=== PATIENT | male | born 1950 | race Caucasian/White ===

== ENCOUNTER 2017-11-22 17:45 | Inpatient (IN) | payer MEDICARE, OTHER ==
[2017-11-23] MEDS: SOD CHLORIDE 0.9% 1,000 ML IV (00:04)
[2017-11-23 00:31] LABS: ADD MAN DIFF? NO
[2017-11-23 00:54] LABS: BASOPHILS % 0.3 % (0.0-2.0); EOSINOPHILS # 0.2 10^3/ul (0.0-0.5); EOSINOPHILS % 2.3 % (0.0-7.0); HEMATOCRIT 37.5 % (42.0-52.0); HEMOGLOBIN 12.7 g/dl (14.0-18.0); LYMPHOCYTES # 2.1 10^3/ul (0.8-2.9); MEAN CORPUSCULAR HEMOGLOBIN 31.1 pg (29.0-33.0); MEAN CORPUSCULAR HGB CONC 33.9 g/dl (32.0-37.0); MEAN CORPUSCULAR VOLUME 91.9 fl (82.0-101.0); MEAN PLATELET VOLUME 10.5 fl (7.4-10.4); MONOCYTE # 0.7 10^3/ul (0.3-0.9); MONOCYTES % 9.7 % (0.0-11.0); NEUTROPHIL # 4.5 10^3/ul (1.6-7.5); NEUTROPHILS % 59.6 % (39.0-77.0); PLATELET COUNT 180 10^3/UL (140-415); RED BLOOD COUNT 4.08 10^6/ul (4.70-6.10); RED CELL DISTRIBUTION WIDTH 13.6 % (11.5-14.5)
[2017-11-23 00:54] LABS: WHITE BLOOD COUNT 7.5 10^3/ul (4.8-10.8)
[2017-11-23 01:16] LABS: ANION GAP 15 (8-16); BLOOD UREA NITROGEN 13 mg/dl (7-20); CALCIUM 8.6 mg/dl (8.4-10.2); CARBON DIOXIDE 28 mmol/L (21-31); CHLORIDE 100 mmol/L (97-110); CREATININE 0.76 mg/dl (0.61-1.24); GLUCOSE 102 mg/dl (70-220); LACTIC ACID 1.1 mmol/L (0.5-2.0); POTASSIUM 3.7 mmol/L (3.5-5.1); SODIUM 139 mmol/L (135-144)
[2017-11-23 01:19] LABS: ADD UMIC NO; UR ASCORBIC ACID NEGATIVE (NEGATIVE); UR BILIRUBIN (Dip) NEGATIVE (NEGATIVE); UR BLOOD (Dip) NEGATIVE (NEGATIVE); UR CLARITY CLEAR (CLEAR); UR COLOR STRAW (YELLOW); UR GLUCOSE (Dip) NEGATIVE (NEGATIVE); UR KETONES (Dip) NEGATIVE (NEGATIVE); UR LEUKOCYTE ESTERASE (Dip) NEGATIVE Leu/ul (NEGATIVE); UR NITRITE (Dip) NEGATIVE (NEGATIVE); UR SPECIFIC GRAVITY (Dip) 1.006 (1.003-1.030); UR TOTAL PROTEIN (Dip) NEGATIVE (NEGATIVE); UR UROBILINOGEN (Dip) NEGATIVE (NEGATIVE)
[2017-11-23 01:42] LABS: INR 0.86; PROTIME 11.8 Sec (11.9-14.9); PT RATIO 0.9; TROPONIN-I < 0.012 ng/ml (0.00-0.12)
[2017-11-23 01:43] LABS: PARTIAL THROMBOPLASTIN TIME 29.9 Sec (25.0-35.0)
[2017-11-23 01:47] LABS: THYROID STIMULATING HORMONE 0.954 MIU/L (0.465-4.680)
[2017-11-23 02:26] LABS: AMPHETAMINE/METHAMPHETAMINE Negative (NEGATIVE); BARBITURATES Negative (NEGATIVE); BENZODIAZEPINES Negative (NEGATIVE)
[2017-11-23 02:26] LABS: ETHANOL < 10.0 mg/dl
[2017-11-23 02:27] LABS: CANNABINOIDS Positive (NEGATIVE); COCAINE Negative (NEGATIVE); OPIATES Negative (NEGATIVE)
[2017-11-23 02:32] LABS: AMMONIA 21 umol/l (9-30)
[2017-11-23] MEDS: morphine 10 MG INJ IV (02:54)
[2017-11-23] MEDS ORDERED: ACETAMINOPHEN 325 MG TAB PO ×2 (03:30→13:00)
[2017-11-23] MEDS: CEFAZOLIN 1 GM/50 ML (PMX) 50 ML IVPB (08:26)
[2017-11-23] MEDS: DIPHTH/TET/ACEL PERTUSS (ADULT) 0.5 ML VIAL IM* (08:27)
[2017-11-23] MEDS ORDERED: NACL 0.9% 3 ML SYG IV (13:00)
[2017-11-23 13:54] LABS: CREATINE KINASE 95 IU/L (23-200)
[2017-11-23 14:07] LABS: CK INDEX 1.1
[2017-11-23 14:10] LABS: CK-MB 1.04 ng/ml (0.0-2.4); TROPONIN-I < 0.012 ng/ml (0.00-0.12)
[2017-11-23] MEDS: morphine 2 MG INJ IV ×2 (15:32→21:59)
[2017-11-23] MEDS: HYDROmorphONE 1 MG/ML SYG IV (20:17)
[2017-11-23 20:18] LABS: CREATINE KINASE 90 IU/L (23-200)
[2017-11-23] MEDS: FAMOTIDINE 20 MG INJ IV (20:18)
[2017-11-23 20:31] LABS: CK-MB 0.93 ng/ml (0.0-2.4); TROPONIN-I < 0.012 ng/ml (0.00-0.12)
[2017-11-23] MEDS: ONDANSETRON 4 MG INJ IV (21:58)
[2017-11-23] MEDS: KETOROLAC 15 MG INJ IV (22:40)
[2017-11-24 07:27] LABS: ADD MAN DIFF? NO
[2017-11-24 07:31] LABS: WHITE BLOOD COUNT 6.2 10^3/ul (4.8-10.8)
[2017-11-24 07:31] LABS: BASOPHILS % 0.3 % (0.0-2.0); EOSINOPHILS # 0.2 10^3/ul (0.0-0.5); EOSINOPHILS % 2.9 % (0.0-7.0); HEMATOCRIT 39.1 % (42.0-52.0); LYMPHOCYTES # 1.9 10^3/ul (0.8-2.9); LYMPHOCYTES % 30.4 % (15.0-51.0); MEAN CORPUSCULAR HGB CONC 33.2 g/dl (32.0-37.0); MEAN CORPUSCULAR VOLUME 93.1 fl (82.0-101.0); MEAN PLATELET VOLUME 9.8 fl (7.4-10.4); MONOCYTE # 0.7 10^3/ul (0.3-0.9); MONOCYTES % 11.2 % (0.0-11.0); NEUTROPHIL # 3.4 10^3/ul (1.6-7.5); NEUTROPHILS % 54.9 % (39.0-77.0); PLATELET COUNT 185 10^3/UL (140-415); RED CELL DISTRIBUTION WIDTH 13.2 % (11.5-14.5)
[2017-11-24 08:00] LABS: ALANINE AMINOTRANSFERASE 37 IU/L (13-69); ALBUMIN 3.7 g/dl (3.3-4.9); ALBUMIN/GLOBULIN RATIO 1.27; ALKALINE PHOSPHATASE 75 IU/L (42-121); ANION GAP 12 (8-16); ASPARTATE AMINO TRANSFERASE 30 IU/L (15-46); BILIRUBIN,INDIRECT 0.5 mg/dl (0-1.1); BILIRUBIN,TOTAL 0.5 mg/dl (0.2-1.3); BLOOD UREA NITROGEN 12 mg/dl (7-20); CALCIUM 7.9 mg/dl (8.4-10.2); CARBON DIOXIDE 31 mmol/L (21-31); CHLORIDE 102 mmol/L (97-110); GLUCOSE 94 mg/dl (70-220); SODIUM 141 mmol/L (135-144); TOTAL PROTEIN 6.6 g/dl (6.1-8.1)
[2017-11-24] MEDS: ASPIRIN 81 MG TAB PO (08:23)
[2017-11-24] MEDS: FAMOTIDINE 20 MG INJ IV ×2 (08:23→20:24)
[2017-11-24] MEDS: ENOXAPARIN 30 MG/0.3 ML SYG SC (08:27)
[2017-11-24] MEDS: ONDANSETRON 4 MG INJ IV (13:15)
[2017-11-24 14:09] LABS: B-TYPE NATRIURETIC PEPTIDE 362 PG/ML (0-125)
[2017-11-24] MEDS ORDERED: GLUCOSE GEL 15 GRAM TUBE BUCCAL (16:00)
[2017-11-24] MEDS ORDERED: GLUCAGON 1 MG INJ IM (16:00)
[2017-11-24] MEDS ORDERED: DEXTROSE 50% 50 ML SYRINGE IV ×2 (16:00)
[2017-11-24] MEDS ORDERED: GLUCOSE GEL 15 GRAM TUBE PO ×2 (16:00)
[2017-11-24] MEDS ORDERED: ACCU-CHEK XX (17:25)
[2017-11-24] MEDS: INSULIN ASPART [NOVOLOG] 3 ML PEN SC ×2 (17:55→20:36)
[2017-11-24] MEDS: morphine 2 MG INJ IV (22:30)
[2017-11-25] MEDS: INSULIN ASPART [NOVOLOG] 3 ML PEN SC ×4 (07:55→20:05)
[2017-11-25] MEDS: ASPIRIN 81 MG TAB PO (08:16)
[2017-11-25] MEDS: FAMOTIDINE 20 MG INJ IV ×2 (08:16→20:05)
[2017-11-25] MEDS: VALSARTAN 80 MG TAB PO (08:17)
[2017-11-25] MEDS: ENOXAPARIN 30 MG/0.3 ML SYG SC (08:26)
[2017-11-25 08:54] LABS: ADD MAN DIFF? NO
[2017-11-25 09:09] LABS: BASOPHILS % 0.3 % (0.0-2.0); EOSINOPHILS # 0.2 10^3/ul (0.0-0.5); EOSINOPHILS % 2.7 % (0.0-7.0); LYMPHOCYTES # 1.7 10^3/ul (0.8-2.9); LYMPHOCYTES % 22.6 % (15.0-51.0); MEAN CORPUSCULAR HEMOGLOBIN 31.9 pg (29.0-33.0); MEAN CORPUSCULAR HGB CONC 34.2 g/dl (32.0-37.0); MEAN CORPUSCULAR VOLUME 93.1 fl (82.0-101.0); MEAN PLATELET VOLUME 9.9 fl (7.4-10.4); MONOCYTE # 0.7 10^3/ul (0.3-0.9); MONOCYTES % 9.9 % (0.0-11.0); NEUTROPHIL # 4.7 10^3/ul (1.6-7.5); NEUTROPHILS % 64.2 % (39.0-77.0); PLATELET COUNT 185 10^3/UL (140-415); RED BLOOD COUNT 4.08 10^6/ul (4.70-6.10); RED CELL DISTRIBUTION WIDTH 13.4 % (11.5-14.5)
[2017-11-25 09:09] LABS: WHITE BLOOD COUNT 7.4 10^3/ul (4.8-10.8)
[2017-11-25 09:15] LABS: ANION GAP 11 (8-16); BLOOD UREA NITROGEN 13 mg/dl (7-20); CALCIUM 8.7 mg/dl (8.4-10.2); CARBON DIOXIDE 31 mmol/L (21-31); CHLORIDE 102 mmol/L (97-110); CREATININE 0.83 mg/dl (0.61-1.24); GLUCOSE 95 mg/dl (70-220); MAGNESIUM 2.2 mg/dl (1.7-2.5); POTASSIUM 4.1 mmol/L (3.5-5.1); SODIUM 140 mmol/L (135-144)
[2017-11-25 09:22] LABS: HEMOGLOBIN A1C 6.1 % (0-5.9)
[2017-11-25 09:28] LABS: TROPONIN-I < 0.012 ng/ml (0.00-0.12)
[2017-11-25 09:34] LABS: ALANINE AMINOTRANSFERASE 35 IU/L (13-69); ALBUMIN 3.7 g/dl (3.3-4.9); ALBUMIN/GLOBULIN RATIO 1.32; ALKALINE PHOSPHATASE 74 IU/L (42-121); ANION GAP 11 (8-16); ASPARTATE AMINO TRANSFERASE 28 IU/L (15-46); BILIRUBIN,INDIRECT 0.4 mg/dl (0-1.1); BILIRUBIN,TOTAL 0.4 mg/dl (0.2-1.3); BLOOD UREA NITROGEN 12 mg/dl (7-20); CALCIUM 8.9 mg/dl (8.4-10.2); CARBON DIOXIDE 33 mmol/L (21-31); CHLORIDE 100 mmol/L (97-110); CREATININE 0.89 mg/dl (0.61-1.24); GLUCOSE 92 mg/dl (70-220); POTASSIUM 4.5 mmol/L (3.5-5.1); SODIUM 139 mmol/L (135-144); TOTAL PROTEIN 6.5 g/dl (6.1-8.1)
[2017-11-25] MEDS: morphine 2 MG INJ IV ×2 (11:04→21:42)
[2017-11-25] MEDS: REGADENOSON 0.4 MG/5 ML SYG (14:16)
[2017-11-25] MEDS ORDERED: NITROGLYCERIN (SL) 0.4 MG TAB SL (14:40)
[2017-11-26] MEDS: ONDANSETRON 4 MG INJ IV ×2 (00:25→17:54)
[2017-11-26] MEDS: INSULIN ASPART [NOVOLOG] 3 ML PEN SC ×4 (07:55→21:00)
[2017-11-26] MEDS: FAMOTIDINE 20 MG INJ IV ×2 (09:08→20:46)
[2017-11-26] MEDS: VALSARTAN 80 MG TAB PO (09:09)
[2017-11-26] MEDS: ASPIRIN 81 MG TAB PO (09:09)
[2017-11-26] MEDS: ENOXAPARIN 30 MG/0.3 ML SYG SC (09:22)
[2017-11-27] MEDS: INSULIN ASPART [NOVOLOG] 3 ML PEN SC ×3 (07:55→17:55)
[2017-11-27] MEDS: VALSARTAN 80 MG TAB PO (08:24)
[2017-11-27] MEDS: FAMOTIDINE 20 MG INJ IV (08:24)
[2017-11-27] MEDS: ASPIRIN 81 MG TAB PO (08:24)
[2017-11-27 08:45] LABS: ADD MAN DIFF? NO
[2017-11-27 08:49] LABS: WHITE BLOOD COUNT 7.2 10^3/ul (4.8-10.8)
[2017-11-27 08:49] LABS: BASOPHILS % 0.6 % (0.0-2.0); EOSINOPHILS # 0.3 10^3/ul (0.0-0.5); EOSINOPHILS % 4.3 % (0.0-7.0); HEMATOCRIT 40.2 % (42.0-52.0); HEMOGLOBIN 13.7 g/dl (14.0-18.0); LYMPHOCYTES # 1.9 10^3/ul (0.8-2.9); MEAN CORPUSCULAR HEMOGLOBIN 31.3 pg (29.0-33.0); MEAN CORPUSCULAR HGB CONC 34.1 g/dl (32.0-37.0); MEAN CORPUSCULAR VOLUME 91.8 fl (82.0-101.0); MONOCYTE # 0.7 10^3/ul (0.3-0.9); MONOCYTES % 10.1 % (0.0-11.0); NEUTROPHIL # 4.3 10^3/ul (1.6-7.5); NEUTROPHILS % 58.9 % (39.0-77.0); PLATELET COUNT 205 10^3/UL (140-415); RED BLOOD COUNT 4.38 10^6/ul (4.70-6.10); RED CELL DISTRIBUTION WIDTH 13.3 % (11.5-14.5)
[2017-11-27] MEDS: ENOXAPARIN 30 MG/0.3 ML SYG SC (08:56)
[2017-11-27 09:14] LABS: ANION GAP 15 (8-16); BLOOD UREA NITROGEN 12 mg/dl (7-20); CALCIUM 9.6 mg/dl (8.4-10.2); CARBON DIOXIDE 33 mmol/L (21-31); CHLORIDE 101 mmol/L (97-110); CREATININE 0.91 mg/dl (0.61-1.24); GLUCOSE 104 mg/dl (70-220); POTASSIUM 5.4 mmol/L (3.5-5.1); SODIUM 144 mmol/L (135-144)
[2017-11-27] MEDS: NA POLYST SULFON 15 GM/60 ML BTL PO (11:49)
== END 2017-11-27 19:18 | DRG 312 ==
LOC: E/R 17:45 → TEL 11-23 03:13
DX: R55 Syncope and collapse (principal); I10 Essential (primary) hypertension; E78.5 Hyperlipidemia, unspecified; D64.9 Anemia, unspecified; E11.9 Type 2 diabetes mellitus without complications; S02.2XXA Fracture of nasal bones, initial encounter for closed fracture; S01.81XA Laceration without foreign body of other part of head, initial encounter; Z95.810 Presence of automatic (implantable) cardiac defibrillator; I25.10 Atherosclerotic heart disease of native coronary artery without angina pectoris; Z95.5 Presence of coronary angioplasty implant and graft; I25.5 Ischemic cardiomyopathy; Z72.0 Tobacco use; W18.30XA Fall on same level, unspecified, initial encounter; Y92.480 Sidewalk as the place of occurrence of the external cause; I25.2 Old myocardial infarction
CPT/HCPCS: 36415; 70450; 70486; 71045; 72125; 72170; 78452; 80048; 80053; 80306; 80307; 81003; 82140; 82550; 82553; 82962; 83036; 83605; 83735; 83880; 84443; 84484; 85025; 85610; 85730; 90471; 90715; 93005; 93017; 93306; 93880; 96374; 96375; 96376; 97116; 97163; 97530; 99285-25

== ENCOUNTER 2017-11-27 19:25 | Inpatient (IN) | payer MEDICARE, OTHER ==
[2017-11-27] MEDS ORDERED: GLUCOSE GEL 15 GRAM TUBE PO ×2 (20:35)
[2017-11-27] MEDS ORDERED: FAMOTIDINE 20 MG INJ IV (20:35)
[2017-11-27] MEDS ORDERED: DEXTROSE 50% 50 ML SYRINGE IV ×2 (20:35)
[2017-11-27] MEDS ORDERED: GLUCAGON 1 MG INJ IM (20:35)
[2017-11-27] MEDS ORDERED: GLUCOSE GEL 15 GRAM TUBE BUCCAL (20:35)
[2017-11-27] MEDS ORDERED: NACL 0.9% 3 ML SYG IV (20:35)
[2017-11-27] MEDS ORDERED: morphine 2 MG INJ IV (20:35)
[2017-11-27] MEDS ORDERED: NITROGLYCERIN (SL) 0.4 MG TAB SL (20:35)
[2017-11-27] MEDS ORDERED: ONDANSETRON 4 MG INJ IV (20:35)
[2017-11-27] MEDS: INSULIN ASPART [NOVOLOG] 3 ML PEN SC (21:00)
[2017-11-27] MEDS: FAMOTIDINE 20 MG TAB PO (21:57)
[2017-11-27] MEDS: ATORVASTATIN 40 MG TAB PO (21:57)
[2017-11-27 23:24] LABS: ADD UMIC NO; UR ASCORBIC ACID 20 mg/dL (NEGATIVE); UR BILIRUBIN (Dip) NEGATIVE (NEGATIVE); UR BLOOD (Dip) NEGATIVE (NEGATIVE); UR CLARITY CLEAR (CLEAR); UR COLOR YELLOW (YELLOW); UR GLUCOSE (Dip) NEGATIVE (NEGATIVE); UR KETONES (Dip) NEGATIVE (NEGATIVE); UR LEUKOCYTE ESTERASE (Dip) NEGATIVE Leu/ul (NEGATIVE); UR NITRITE (Dip) NEGATIVE (NEGATIVE); UR SPECIFIC GRAVITY (Dip) 1.008 (1.003-1.030); UR TOTAL PROTEIN (Dip) NEGATIVE (NEGATIVE); UR UROBILINOGEN (Dip) NEGATIVE (NEGATIVE)
[2017-11-27] MEDS: ZOLPIDEM 5 MG TAB PO (23:40)
[2017-11-27] MEDS: MAGNESIUM HYDROXIDE 30ML CUP PO (23:42)
[2017-11-28] MEDS: ACETAMINOPHEN 325 MG TAB PO (05:10)
[2017-11-28] MEDS: INSULIN ASPART [NOVOLOG] 3 ML PEN SC ×4 (07:35→20:53)
[2017-11-28 07:40] LABS: ADD MAN DIFF? NO
[2017-11-28 07:51] LABS: BASOPHILS % 0.6 % (0.0-2.0); EOSINOPHILS # 0.3 10^3/ul (0.0-0.5); EOSINOPHILS % 4.7 % (0.0-7.0); HEMATOCRIT 39.2 % (42.0-52.0); HEMOGLOBIN 13.3 g/dl (14.0-18.0); LYMPHOCYTES # 1.8 10^3/ul (0.8-2.9); LYMPHOCYTES % 28.6 % (15.0-51.0); MEAN CORPUSCULAR HEMOGLOBIN 30.9 pg (29.0-33.0); MEAN CORPUSCULAR HGB CONC 33.9 g/dl (32.0-37.0); MEAN CORPUSCULAR VOLUME 91.2 fl (82.0-101.0); MEAN PLATELET VOLUME 9.8 fl (7.4-10.4); MONOCYTE # 0.7 10^3/ul (0.3-0.9); MONOCYTES % 11.4 % (0.0-11.0); NEUTROPHIL # 3.4 10^3/ul (1.6-7.5); NEUTROPHILS % 54.4 % (39.0-77.0); PLATELET COUNT 204 10^3/UL (140-415); RED CELL DISTRIBUTION WIDTH 13.3 % (11.5-14.5)
[2017-11-28 07:51] LABS: WHITE BLOOD COUNT 6.2 10^3/ul (4.8-10.8)
[2017-11-28 08:10] LABS: ALANINE AMINOTRANSFERASE 38 IU/L (13-69); ALBUMIN 4.2 g/dl (3.3-4.9); ALBUMIN/GLOBULIN RATIO 1.27; ALKALINE PHOSPHATASE 77 IU/L (42-121); ANION GAP 12 (8-16); ASPARTATE AMINO TRANSFERASE 38 IU/L (15-46); BILIRUBIN,INDIRECT 0.5 mg/dl (0-1.1); BILIRUBIN,TOTAL 0.5 mg/dl (0.2-1.3); BLOOD UREA NITROGEN 11 mg/dl (7-20); CALCIUM 9.1 mg/dl (8.4-10.2); CARBON DIOXIDE 32 mmol/L (21-31); CHLORIDE 100 mmol/L (97-110); GLUCOSE 105 mg/dl (70-220); POTASSIUM 3.9 mmol/L (3.5-5.1); SODIUM 140 mmol/L (135-144); TOTAL PROTEIN 7.5 g/dl (6.1-8.1)
[2017-11-28] MEDS: metFORMIN 500 MG TAB PO ×2 (08:31→18:20)
[2017-11-28] MEDS: ONDANSETRON 4 MG TAB PO (08:54)
[2017-11-28] MEDS: FAMOTIDINE 20 MG TAB PO ×2 (08:54→20:52)
[2017-11-28] MEDS: ASPIRIN 81 MG TAB PO (09:00)
[2017-11-28] MEDS: ENOXAPARIN 30 MG/0.3 ML SYG SC (09:00)
[2017-11-28] MEDS: ONDANSETRON 4 MG INJ IM (10:17)
[2017-11-28] MEDS: DOCUSATE SODIUM 100 MG CAP PO ×2 (11:39→20:52)
[2017-11-28] MEDS: SENNA TAB PO (20:52)
[2017-11-28] MEDS: ATORVASTATIN 40 MG TAB PO (20:52)
[2017-11-28] MEDS: ZOLPIDEM 5 MG TAB PO (22:05)
[2017-11-29] MEDS: ONDANSETRON 4 MG TAB PO ×2 (04:03→08:59)
[2017-11-29] MEDS: INSULIN ASPART [NOVOLOG] 3 ML PEN SC ×4 (07:35→20:33)
[2017-11-29] MEDS: DOCUSATE SODIUM 100 MG CAP PO ×2 (09:00→20:33)
[2017-11-29] MEDS: metFORMIN 500 MG TAB PO ×2 (09:00→17:26)
[2017-11-29] MEDS: FAMOTIDINE 20 MG TAB PO ×2 (09:01→20:33)
[2017-11-29] MEDS: ASPIRIN 81 MG TAB PO (09:01)
[2017-11-29] MEDS: FUROSEMIDE 20 MG TAB PO (09:02)
[2017-11-29] MEDS: ENOXAPARIN 30 MG/0.3 ML SYG SC (09:03)
[2017-11-29] MEDS: BENAZEPRIL 10 MG TAB PO (16:00)
[2017-11-29] MEDS: SENNA TAB PO (20:32)
[2017-11-29] MEDS: ATORVASTATIN 40 MG TAB PO (20:32)
[2017-11-29] MEDS: ZOLPIDEM 5 MG TAB PO (22:12)
[2017-11-30] MEDS: ONDANSETRON 4 MG TAB PO (05:55)
[2017-11-30] MEDS: INSULIN ASPART [NOVOLOG] 3 ML PEN SC ×4 (07:35→20:37)
[2017-11-30] MEDS: metFORMIN 500 MG TAB PO ×2 (07:35→18:20)
[2017-11-30] MEDS: DOCUSATE SODIUM 100 MG CAP PO ×2 (09:00→21:00)
[2017-11-30] MEDS ORDERED: ONDANSETRON 4 MG INJ IM (10:43)
[2017-11-30 10:44] LABS: AMYLASE 60 U/L (11-123); ANION GAP 16 (8-16); BLOOD UREA NITROGEN 15 mg/dl (7-20); CALCIUM 10.1 mg/dl (8.4-10.2); CARBON DIOXIDE 27 mmol/L (21-31); CHLORIDE 100 mmol/L (97-110); CREATININE 0.84 mg/dl (0.61-1.24); GLUCOSE 119 mg/dl (70-220); LIPASE 106 U/L (23-300); MAGNESIUM 1.9 mg/dl (1.7-2.5); POTASSIUM 3.6 mmol/L (3.5-5.1); SODIUM 139 mmol/L (135-144)
[2017-11-30] MEDS: BARIUM SULF 2% 450 ML BTL (BERRY SMOOTHIE) PO (11:19)
[2017-11-30] MEDS: ASPIRIN 81 MG TAB PO (11:27)
[2017-11-30] MEDS: FAMOTIDINE 20 MG TAB PO ×2 (11:28→20:34)
[2017-11-30] MEDS: BENAZEPRIL 10 MG TAB PO (11:29)
[2017-11-30] MEDS: ENOXAPARIN 30 MG/0.3 ML SYG SC (11:30)
[2017-11-30] MEDS: ONDANSETRON 4 MG INJ IV (16:47)
[2017-11-30] MEDS: ATORVASTATIN 40 MG TAB PO (20:34)
[2017-11-30] MEDS: SENNA TAB PO (21:00)
[2017-11-30] MEDS: ZOLPIDEM 5 MG TAB PO (22:50)
[2017-12-01] MEDS: ONDANSETRON 4 MG INJ IV (05:51)
[2017-12-01] MEDS: INSULIN ASPART [NOVOLOG] 3 ML PEN SC ×4 (07:35→21:00)
[2017-12-01] MEDS: metFORMIN 500 MG TAB PO ×2 (08:22→17:57)
[2017-12-01] MEDS: LORAZEPAM 0.5 MG TAB PO ×2 (09:32→21:40)
[2017-12-01] MEDS: FAMOTIDINE 20 MG TAB PO ×2 (09:32→21:43)
[2017-12-01] MEDS: DOCUSATE SODIUM 100 MG CAP PO ×2 (09:33→21:39)
[2017-12-01] MEDS: FUROSEMIDE 20 MG TAB PO (09:33)
[2017-12-01] MEDS: BENAZEPRIL 10 MG TAB PO (09:33)
[2017-12-01] MEDS: ASPIRIN 81 MG TAB PO (09:33)
[2017-12-01] MEDS: ENOXAPARIN 30 MG/0.3 ML SYG SC (09:34)
[2017-12-01] MEDS: ESCITALOPRAM 10 MG TAB PO (12:53)
[2017-12-01 19:53] LABS: AMYLASE 80 U/L (11-123)
[2017-12-01 19:53] LABS: LIPASE 432 U/L (23-300)
[2017-12-01] MEDS: BUSPIRONE 5 MG TAB PO (21:39)
[2017-12-01] MEDS: SENNA TAB PO (21:39)
[2017-12-01] MEDS: ATORVASTATIN 40 MG TAB PO (21:39)
[2017-12-02] MEDS: ZOLPIDEM 5 MG TAB PO (01:03)
[2017-12-02] MEDS: INSULIN ASPART [NOVOLOG] 3 ML PEN SC ×4 (07:35→21:00)
[2017-12-02] MEDS: metFORMIN 500 MG TAB PO ×2 (07:35→17:55)
[2017-12-02] MEDS: ESCITALOPRAM 10 MG TAB PO (09:00)
[2017-12-02] MEDS: FAMOTIDINE 20 MG TAB PO ×2 (09:00→21:31)
[2017-12-02] MEDS: BUSPIRONE 5 MG TAB PO ×2 (09:00→21:31)
[2017-12-02] MEDS: DOCUSATE SODIUM 100 MG CAP PO ×2 (09:00→21:32)
[2017-12-02] MEDS: BENAZEPRIL 10 MG TAB PO (09:00)
[2017-12-02] MEDS: ASPIRIN 81 MG TAB PO (09:00)
[2017-12-02] MEDS: ENOXAPARIN 30 MG/0.3 ML SYG SC (10:18)
[2017-12-02] MEDS: PROPOFOL 40 ML (11:58)
[2017-12-02] MEDS: ONDANSETRON 4 MG TAB PO (14:47)
[2017-12-02] MEDS: LORAZEPAM 0.5 MG TAB PO (14:47)
[2017-12-02] MEDS: SENNA TAB PO (21:00)
[2017-12-02] MEDS: ATORVASTATIN 40 MG TAB PO (21:32)
[2017-12-03] MEDS: INSULIN ASPART [NOVOLOG] 3 ML PEN SC ×4 (07:35→21:00)
[2017-12-03] MEDS: metFORMIN 500 MG TAB PO ×2 (08:21→18:13)
[2017-12-03] MEDS: DOCUSATE SODIUM 100 MG CAP PO ×3 (09:00→21:00)
[2017-12-03] MEDS: FAMOTIDINE 20 MG TAB PO ×2 (10:27→22:05)
[2017-12-03] MEDS: BENAZEPRIL 10 MG TAB PO (10:27)
[2017-12-03] MEDS: BUSPIRONE 5 MG TAB PO ×2 (10:27→22:04)
[2017-12-03] MEDS: ESCITALOPRAM 10 MG TAB PO (10:28)
[2017-12-03] MEDS: ASPIRIN 81 MG TAB PO (10:29)
[2017-12-03] MEDS: FUROSEMIDE 20 MG TAB PO (10:29)
[2017-12-03] MEDS: ENOXAPARIN 30 MG/0.3 ML SYG SC (10:30)
[2017-12-03] MEDS: SENNA TAB PO (21:00)
[2017-12-03] MEDS: ATORVASTATIN 40 MG TAB PO (22:05)
[2017-12-03] MEDS: ZOLPIDEM 5 MG TAB PO (23:48)
[2017-12-04] MEDS: LORAZEPAM 0.5 MG TAB PO ×2 (00:19→08:39)
[2017-12-04] MEDS: INSULIN ASPART [NOVOLOG] 3 ML PEN SC ×4 (07:35→20:57)
[2017-12-04] MEDS: ACETAMINOPHEN 325 MG TAB PO (08:08)
[2017-12-04] MEDS: metFORMIN 500 MG TAB PO ×2 (08:39→17:54)
[2017-12-04] MEDS: ESCITALOPRAM 10 MG TAB PO (09:14)
[2017-12-04] MEDS: ASPIRIN 81 MG TAB PO (09:15)
[2017-12-04] MEDS: DOCUSATE SODIUM 100 MG CAP PO ×2 (09:15→20:57)
[2017-12-04] MEDS: ENOXAPARIN 30 MG/0.3 ML SYG SC (09:15)
[2017-12-04] MEDS: FAMOTIDINE 20 MG TAB PO ×2 (09:15→20:58)
[2017-12-04] MEDS: ONDANSETRON 4 MG TAB PO (09:15)
[2017-12-04] MEDS: BUSPIRONE 5 MG TAB PO ×2 (09:15→20:58)
[2017-12-04] MEDS: BENAZEPRIL 10 MG TAB PO (09:16)
[2017-12-04] MEDS: ZOLPIDEM 5 MG TAB PO (20:56)
[2017-12-04] MEDS: SENNA TAB PO (20:57)
[2017-12-04] MEDS: ATORVASTATIN 40 MG TAB PO (20:57)
[2017-12-05] MEDS: INSULIN ASPART [NOVOLOG] 3 ML PEN SC ×4 (07:35→20:49)
[2017-12-05] MEDS: ACETAMINOPHEN 325 MG TAB PO ×2 (08:12→14:33)
[2017-12-05] MEDS: ENOXAPARIN 30 MG/0.3 ML SYG SC (08:12)
[2017-12-05] MEDS: FAMOTIDINE 20 MG TAB PO ×2 (08:12→20:48)
[2017-12-05] MEDS: metFORMIN 500 MG TAB PO ×2 (08:13→17:48)
[2017-12-05] MEDS: BUSPIRONE 5 MG TAB PO ×2 (08:13→20:48)
[2017-12-05] MEDS: ASPIRIN 81 MG TAB PO (08:13)
[2017-12-05] MEDS: ESCITALOPRAM 10 MG TAB PO (08:14)
[2017-12-05] MEDS: BENAZEPRIL 10 MG TAB PO (08:15)
[2017-12-05] MEDS: FUROSEMIDE 20 MG TAB PO (08:16)
[2017-12-05] MEDS: DOCUSATE SODIUM 100 MG CAP PO ×3 (08:16→20:48)
[2017-12-05] MEDS: LIDOCAINE 5% PATCH TD (13:54)
[2017-12-05] MEDS: SENNA TAB PO (20:48)
[2017-12-05] MEDS: LORAZEPAM 0.5 MG TAB PO (20:48)
[2017-12-05] MEDS: ATORVASTATIN 40 MG TAB PO (20:48)
[2017-12-05] MEDS: ZOLPIDEM 5 MG TAB PO (21:57)
[2017-12-06] MEDS: ACETAMINOPHEN 325 MG TAB PO ×3 (02:54→19:41)
[2017-12-06] MEDS: ONDANSETRON 4 MG INJ IV (02:59)
[2017-12-06] MEDS: INSULIN ASPART [NOVOLOG] 3 ML PEN SC ×5 (07:35→20:44)
[2017-12-06] MEDS: LIDOCAINE 5% PATCH TD (08:36)
[2017-12-06] MEDS: ENOXAPARIN 30 MG/0.3 ML SYG SC (08:41)
[2017-12-06] MEDS: FAMOTIDINE 20 MG TAB PO ×2 (08:41→20:41)
[2017-12-06] MEDS: ESCITALOPRAM 10 MG TAB PO (08:43)
[2017-12-06] MEDS: BENAZEPRIL 10 MG TAB PO (08:43)
[2017-12-06] MEDS: ASPIRIN 81 MG TAB PO (08:44)
[2017-12-06] MEDS: BUSPIRONE 5 MG TAB PO ×2 (08:44→20:41)
[2017-12-06] MEDS: DOCUSATE SODIUM 100 MG CAP PO ×2 (08:44→20:40)
[2017-12-06] MEDS: metFORMIN 500 MG TAB PO ×2 (08:44→17:30)
[2017-12-06] MEDS: ATORVASTATIN 40 MG TAB PO (20:40)
[2017-12-06] MEDS: SENNA TAB PO (20:41)
[2017-12-06] MEDS: ZOLPIDEM 5 MG TAB PO (22:08)
[2017-12-07] MEDS: LORAZEPAM 0.5 MG TAB PO (01:24)
[2017-12-07] MEDS: ONDANSETRON 4 MG INJ IV (01:26)
[2017-12-07] MEDS: INSULIN ASPART [NOVOLOG] 3 ML PEN SC ×4 (07:35→20:22)
[2017-12-07] MEDS: metFORMIN 500 MG TAB PO ×2 (08:02→17:51)
[2017-12-07] MEDS: FAMOTIDINE 20 MG TAB PO ×2 (09:33→20:21)
[2017-12-07] MEDS: ENOXAPARIN 30 MG/0.3 ML SYG SC (09:33)
[2017-12-07] MEDS: FUROSEMIDE 20 MG TAB PO (09:34)
[2017-12-07] MEDS: BENAZEPRIL 10 MG TAB PO (09:36)
[2017-12-07] MEDS: ESCITALOPRAM 10 MG TAB PO (09:36)
[2017-12-07] MEDS: DOCUSATE SODIUM 100 MG CAP PO ×2 (09:37→20:22)
[2017-12-07] MEDS: ASPIRIN 81 MG TAB PO (09:37)
[2017-12-07] MEDS: BUSPIRONE 5 MG TAB PO ×2 (09:37→20:21)
[2017-12-07] MEDS: ACETAMINOPHEN 325 MG TAB PO ×2 (09:38→18:32)
[2017-12-07] MEDS: LIDOCAINE 5% PATCH TD (09:38)
[2017-12-07] MEDS: ATORVASTATIN 40 MG TAB PO (20:21)
[2017-12-07] MEDS: SENNA TAB PO (20:22)
[2017-12-07] MEDS: ZOLPIDEM 5 MG TAB PO (21:42)
[2017-12-08] MEDS: LORAZEPAM 0.5 MG TAB PO (00:35)
[2017-12-08] MEDS: ACETAMINOPHEN 325 MG TAB PO ×2 (02:26→13:17)
[2017-12-08] MEDS: INSULIN ASPART [NOVOLOG] 3 ML PEN SC ×2 (07:35→12:00)
[2017-12-08] MEDS: metFORMIN 500 MG TAB PO (08:22)
[2017-12-08] MEDS: FAMOTIDINE 20 MG TAB PO (08:24)
[2017-12-08] MEDS: ASPIRIN 81 MG TAB PO (08:24)
[2017-12-08] MEDS: ESCITALOPRAM 10 MG TAB PO (08:24)
[2017-12-08] MEDS: BUSPIRONE 5 MG TAB PO (08:24)
[2017-12-08] MEDS: LIDOCAINE 5% PATCH TD (08:25)
[2017-12-08] MEDS: ENOXAPARIN 30 MG/0.3 ML SYG SC (08:28)
[2017-12-08] MEDS: DOCUSATE SODIUM 100 MG CAP PO ×2 (08:28→08:35)
[2017-12-08] MEDS: BENAZEPRIL 10 MG TAB PO (13:03)
== END 2017-12-08 13:50 | disposition home health service (06) | DRG 945 ==
LOC: VRC 12-01 11:42
PROC: F08Z7ZZ Vocational Activities and Functional Community or Work Reintegration Skills Treatment (ICD-10-PCS; principal; 2017-12-02 11:48)
PROC: F07Z5ZZ Bed Mobility Treatment (ICD-10-PCS; 2017-12-02 11:48)
PROC: 0DB68ZX Excision of Stomach, Via Natural or Artificial Opening Endoscopic, Diagnostic (ICD-10-PCS; 2017-12-02 11:48)
DX: S06.9X0D Unspecified intracranial injury without loss of consciousness, subsequent encounter (principal); I42.9 Cardiomyopathy, unspecified; E11.40 Type 2 diabetes mellitus with diabetic neuropathy, unspecified; I50.9 Heart failure, unspecified; B37.9 Candidiasis, unspecified; I10 Essential (primary) hypertension; E11.9 Type 2 diabetes mellitus without complications; D64.9 Anemia, unspecified; S02.2XXD Fracture of nasal bones, subsequent encounter for fracture with routine healing; M19.90 Unspecified osteoarthritis, unspecified site; I25.10 Atherosclerotic heart disease of native coronary artery without angina pectoris; I25.2 Old myocardial infarction; E78.5 Hyperlipidemia, unspecified; R55 Syncope and collapse; Z95.810 Presence of automatic (implantable) cardiac defibrillator; R10.9 Unspecified abdominal pain; F41.1 Generalized anxiety disorder; J06.9 Acute upper respiratory infection, unspecified; B34.9 Viral infection, unspecified; R51 Headache; R06.00 Dyspnea, unspecified; R07.9 Chest pain, unspecified; R11.2 Nausea with vomiting, unspecified; R20.2 Paresthesia of skin; K44.9 Diaphragmatic hernia without obstruction or gangrene; K21.0 Gastro-esophageal reflux disease with esophagitis; K29.70 Gastritis, unspecified, without bleeding; Z79.82 Long term (current) use of aspirin; Z79.4 Long term (current) use of insulin; W18.30XD Fall on same level, unspecified, subsequent encounter
CPT/HCPCS: 70450; 74176; 80048; 80053; 81003; 82150; 82962; 83690; 83735; 85025; 87081; 87086; 88305; 88312; 88313; 92610; 97110; 97116; 97150; 97163; 97167; 97530; 97535

== ENCOUNTER → 2018-01-14 | Outpatient (CLI) | payer MEDICARE, OTHER | END | disposition home or self-care (01) | LOC: RAD 11:23 | DX: R05 Cough (principal); Z95.0 Presence of cardiac pacemaker; Z95.810 Presence of automatic (implantable) cardiac defibrillator | CPT/HCPCS: 71046 ==

== ENCOUNTER 2018-09-22 09:26 | Emergency (ER) | payer MEDICARE, MEDICAID, OTHER ==
[2018-09-22] MEDS: ACETAMINOPHEN 500 MG TAB PO (16:09)
== END 2018-09-22 16:24 | disposition home or self-care (01) ==
LOC: E/R 09:26
DX: S09.90XA Unspecified injury of head, initial encounter (principal); G44.319 Acute post-traumatic headache, not intractable; I10 Essential (primary) hypertension; E11.9 Type 2 diabetes mellitus without complications; W01.118A Fall on same level from slipping, tripping and stumbling with subsequent striking against other sharp object, initial encounter; Y92.9 Unspecified place or not applicable; Z79.84 Long term (current) use of oral hypoglycemic drugs; Z79.82 Long term (current) use of aspirin
CPT/HCPCS: 70450; 99284-25